=== PATIENT | male | born 1965 | race African-American/Black ===

== ENCOUNTER 2019-10-17 19:47 | Inpatient (IN) | payer OTHER ==
[~2019-10-17] VITALS: Ht 180.3 cm; Wt 78.1 kg
[2019-10-17] MEDS ORDERED: HYDROmorphone 1 MG/ML, 1ML INJ ONE ×2 (20:18→20:50)
[2019-10-17] MEDS ORDERED: ONDANSETRON 2MG/ML, 2ML ONE (20:18)
[2019-10-17] MEDS ORDERED: HYDROmorphone 1 MG/ML, 1ML INJ IV ONE ×2 (20:30→21:00)
[2019-10-17] MEDS ORDERED: ONDANSETRON 2MG/ML, 2ML IVPush ONE (20:30)
--- NOTE | 2019-10-17 20:30 | NUR ---
pT MEDICATED PER EMAR.
--- NOTE | 2019-10-17 20:31 | NUR ---
PT ARRIVES TO ED WITH NEW ONSET OF HERNIAS ABOVE PENIS. PT REPORTS THAT ONLY 2 DAYS OLD AND VERY PAINFUL. PT DENIES RECTAL TRAUMA OR ANY TRAUMA. PT REPORTS NO HX OF HERNIAS. PT CONNECTED TO MONITORS AND CALL LIGHT IN REACH.
[2019-10-17 21:20] LABS: BASOPHILS # (AUTO) 0.04 x10^3/uL (0-0.1); BASOPHILS % (AUTO) 0 % (0-1); EOSINOPHILS # (AUTO) 0.03 x10^3/uL (0-0.4); EOSINOPHILS % (AUTO) 0 % (1-7); LYMPHOCYTES # (AUTO) 1.79 x10^3/uL (1-3.4); LYMPHOCYTES % (AUTO) 17 % (22-44); MD NO; MEAN CORPUSCULAR HEMOGLOBIN 29.5 pg (27.5-34.5); MEAN CORPUSCULAR HGB CONC 31.9 g/dL (33.2-36.2); MEAN CORPUSCULAR VOLUME 92.6 fL (81-97); MEAN PLATELET VOLUME 9.1 fL (7.4-10.4); MONOCYTES % (AUTO) 5 % (2-9); NEUTROPHILS # (AUTO) 8.44 x10^3/uL (1.8-6.8); NEUTROPHILS % (AUTO) 78 % (42-75); PLATELET COUNT 201 x10^3/uL (130-400); RED BLOOD COUNT 4.51 x10^6/uL (4.38-5.82); RED CELL DISTRIBUTION WIDTH 13.7 % (9.4-14.8)
[2019-10-17 21:27] LABS: ALBUMIN 3.5 g/dL (3.4-5.0); ANION GAP 7 mmol/L (5-15); CALCIUM 9.2 mg/dL (8.5-10.1); CHLORIDE 106 mmol/L (98-107)
--- NOTE | 2019-10-17 21:45 | NUR ---
Md unable to reduce hernia, pt to ct.
[2019-10-17] MEDS ORDERED: OMNIPAQUE 350 MG/ML, 100ML BOTTLE ONE (22:43)
--- NOTE | 2019-10-17 23:17 | NUR ---
TP note: no bed at surgical per sup medical bed was requested at [id number]
--- NOTE | 2019-10-17 23:30 | NUR ---
Pt resting in room, reports no new pain needs. Pt vss.
[2019-10-18 00:30] VITALS: BP 144/77
[2019-10-18 01:26] VITALS: BP 130/71
[2019-10-18] MEDS ORDERED: hydrALAzine 20 MG/ML, 1ML IVPush PRN (01:30)
[2019-10-18] MEDS ORDERED: ONDANSETRON 2MG/ML, 2ML IVPush PRN (01:30)
[2019-10-18] MEDS ORDERED: morphine SULFATE 10 MG/ML, 1ML IVPush PRN ×2 (01:30→16:30)
[2019-10-18] MEDS: LACTATED RINGERS 1,000 ML IV SCH ×5 (01:37→22:03)
[2019-10-18 06:11] LABS: BASOPHILS # (AUTO) 0.01 x10^3/uL (0-0.1); BASOPHILS % (AUTO) 0 % (0-1); EOSINOPHILS % (AUTO) 0 % (1-7); LYMPHOCYTES # (AUTO) 1.04 x10^3/uL (1-3.4); LYMPHOCYTES % (AUTO) 9 % (22-44); MD NO; MEAN CORPUSCULAR HEMOGLOBIN 29.9 pg (27.5-34.5); MEAN CORPUSCULAR HGB CONC 32.5 g/dL (33.2-36.2); MEAN PLATELET VOLUME 8.4 fL (7.4-10.4); MONOCYTES # (AUTO) 0.57 x10^3/uL (0.2-0.8); MONOCYTES % (AUTO) 5 % (2-9); NEUTROPHILS # (AUTO) 9.77 x10^3/uL (1.8-6.8); NEUTROPHILS % (AUTO) 86 % (42-75); PLATELET COUNT 238 x10^3/uL (130-400); RED BLOOD COUNT 4.16 x10^6/uL (4.38-5.82); RED CELL DISTRIBUTION WIDTH 13.9 % (9.4-14.8)
[2019-10-18 06:19] LABS: ANION GAP 5 mmol/L (5-15); CALCIUM 9.2 mg/dL (8.5-10.1); CHLORIDE 105 mmol/L (98-107); CREATININE 0.77 mg/dL (0.7-1.3)
[2019-10-18 07:59] VITALS: BP 107/66
[2019-10-18] MEDS ORDERED: BUPIVACAINE/PF-EPI 0.5% 1:200K ONE (09:48)
[2019-10-18] MEDS ORDERED: FENTANYL PF 250 MCG/5ML ONE (10:06)
[2019-10-18] MEDS ORDERED: PHENYLEPHRINE 10 MG/ML ONE (10:20)
[2019-10-18] MEDS ORDERED: EPHEDRINE 50 MG/ML, 1ML ONE (10:20)
[2019-10-18] MEDS ORDERED: ONDANSETRON 2MG/ML, 2ML ONE (11:21)
[2019-10-18] MEDS ORDERED: GLYCOPYRROLATE 0.2MG/1ML, 5ML ONE (11:21)
[2019-10-18] MEDS ORDERED: CEFAZOLIN 1,000 MG ONE (11:21)
[2019-10-18] MEDS ORDERED: SUCCINYLCHOLINE 20 MG/ML, 10ML ONE (11:21)
[2019-10-18] MEDS ORDERED: NEOSTIGMINE 1 MG/ML, 10ML ONE (11:21)
[2019-10-18] MEDS ORDERED: PROPOFOL 10 MG/ML, 20ML ONE (11:21)
[2019-10-18] MEDS ORDERED: LIDOCAINE-MPF 2% ,5ML ONE (11:21)
[2019-10-18] MEDS ORDERED: DEXAMETHASONE 4 MG/ML, 1ML ONE (11:21)
[2019-10-18] MEDS ORDERED: ROCURONIUM 10MG/ML,5ML ONE (11:21)
[2019-10-18] MEDS ORDERED: KETOROLAC 30 MG/1 ML ONE (11:26)
[2019-10-18] MEDS ORDERED: hydrALAzine 20 MG/ML, 1ML IV PRN (11:30)
[2019-10-18] MEDS ORDERED: MEPERIDINE/PF 25MG/ML,1ML IVPush PRN (11:30)
[2019-10-18] MEDS ORDERED: ACETAMINOPHEN 325 MG TABLET PO PRN (11:30)
[2019-10-18] MEDS ORDERED: ALBUTEROL/IPRATROPIUM 2.5MG/0.5MG, 3 ML NPPB PRN (11:30)
[2019-10-18] MEDS ORDERED: METOPROLOL 1 MG/ML, 5ML IV PRN (11:30)
[2019-10-18] MEDS ORDERED: PROMETHAZINE 25 MG/ML, 1ML IV PRN (11:30)
[2019-10-18] MEDS ORDERED: OXYcodone 5 MG/5 ML ORAL.SOL UDC PO PRN ×2 (11:30→14:00)
[2019-10-18] MEDS ORDERED: FENTANYL PF 100 MCG/2ML IV PRN (11:30)
[2019-10-18] MEDS ORDERED: HYDROmorphone 1 MG/ML, 1ML INJ IVPush PRN (11:30)
[2019-10-18] MEDS ORDERED: MIDAZOLAM 1 MG/ML, 2ML IV PRN (11:30)
[2019-10-18 14:45] VITALS: BP 108/66
[2019-10-18 20:10] VITALS: BP 105/65
[2019-10-19 00:34] VITALS: BP 107/62
[2019-10-19] MEDS: ACETAMINOPHEN 325 MG TABLET PO PRN ×3 (00:42→20:51)
[2019-10-19] MEDS: LACTATED RINGERS 1,000 ML IV SCH (04:23)
[2019-10-19 04:25] VITALS: BP 110/69
[2019-10-19 06:16] LABS: BASOPHILS # (AUTO) 0.03 x10^3/uL (0-0.1); BASOPHILS % (AUTO) 0 % (0-1); EOSINOPHILS % (AUTO) 0 % (1-7); LYMPHOCYTES # (AUTO) 1.61 x10^3/uL (1-3.4); LYMPHOCYTES % (AUTO) 13 % (22-44); MD NO; MEAN CORPUSCULAR HEMOGLOBIN 29.9 pg (27.5-34.5); MEAN CORPUSCULAR HGB CONC 32.2 g/dL (33.2-36.2); MEAN CORPUSCULAR VOLUME 92.7 fL (81-97); MEAN PLATELET VOLUME 9.1 fL (7.4-10.4); MONOCYTES # (AUTO) 1.09 x10^3/uL (0.2-0.8); MONOCYTES % (AUTO) 9 % (2-9); NEUTROPHILS # (AUTO) 9.72 x10^3/uL (1.8-6.8); NEUTROPHILS % (AUTO) 78 % (42-75); PLATELET COUNT 208 x10^3/uL (130-400); RED BLOOD COUNT 3.66 x10^6/uL (4.38-5.82); RED CELL DISTRIBUTION WIDTH 13.9 % (9.4-14.8)
[2019-10-19 06:19] LABS: ANION GAP 6 mmol/L (5-15); CALCIUM 8.8 mg/dL (8.5-10.1); CHLORIDE 107 mmol/L (98-107)
[2019-10-19 07:44] VITALS: BP 112/70
[2019-10-19 14:33] VITALS: BP 113/66
[2019-10-19 19:29] VITALS: BP 136/76
[2019-10-19] MEDS: SODIUM CHLORIDE FLUSH 10ML SYR IVF SCH (20:51)
[2019-10-20 01:13] VITALS: BP 121/73
[2019-10-20] MEDS: ACETAMINOPHEN 325 MG TABLET PO PRN ×2 (01:16→08:00)
[2019-10-20 07:20] VITALS: BP 111/71
[2019-10-20] MEDS: SODIUM CHLORIDE FLUSH 10ML SYR IVF SCH (08:00)
[2019-10-20] MEDS ORDERED: FLU VACC QS2019-20 36MOS UP/PF 0.5 ML IM-VACC ONE (13:00)
[2019-10-20 14:20] VITALS: BP 109/67
[2019-10-20] MEDS ORDERED: DOCU-131 PO (14:29)
[2019-10-20] MEDS ORDERED: ACET325T26 PO (14:29)
== END 2019-10-20 15:40 | disposition home or self-care (01) | DRG 352 ==
LOC: ED 20:13 → EDIP 23:00 → 3N 10-18 00:34 → 4NE 10-18 14:34
PROVIDERS: ADMIT Family Medicine; ATTEND Family Medicine
PROC: 0YU50JZ Supplement Right Inguinal Region with Synthetic Substitute, Open Approach (ICD-10-PCS; principal; 2019-10-18 10:00)
PROC: 0WJG4ZZ Inspection of Peritoneal Cavity, Percutaneous Endoscopic Approach (ICD-10-PCS; 2019-10-18 10:00)
DX: K40.30 Unilateral inguinal hernia, with obstruction, without gangrene, not specified as recurrent (principal); N50.811 Right testicular pain
CPT/HCPCS: 36415; 96374; 99285; J3490; 74177; 80048; 82040; 83735; 84100; 85025; 88302; 90686; G0378; J0690; J1100; J1170; J1885; J2405; J2704; J2710; J3010; Q9967; C1781; J0330; J2370; J7120